=== PATIENT | male | born 1995 ===

== ENCOUNTER 2019-04-25 18:57 | Emergency (ER) | payer MEDICAID ==
[~2019-04-25] VITALS: Ht 175.3 cm; Wt 68.2 kg
[2019-04-25] MEDS ORDERED: SERT50TA12 PO (19:24)
[2019-04-25] MEDS ORDERED: ACETAMINOPHEN 500 MG TABLET PO ONE (19:45)
[2019-04-25 20:35] LABS: INFLUENZA TYPE A NEGATIVE FOR TYPE A (NEGATIVE); INFLUENZA TYPE B NEGATIVE FOR TYPE B (NEGATIVE)
[2019-04-25 21:19] VITALS: BP 122/73
[2019-04-25] MEDS ORDERED: AZITHROMYCIN 250 MG TABLET PO ONE (23:00)
== END 2019-04-25 23:11 | disposition home or self-care (01) ==
LOC: EMS 19:01
DX: J18.8 Other pneumonia, unspecified organism (principal); F41.9 Anxiety disorder, unspecified; F32.9 Major depressive disorder, single episode, unspecified; F17.210 Nicotine dependence, cigarettes, uncomplicated; F11.90 Opioid use, unspecified, uncomplicated; F15.90 Other stimulant use, unspecified, uncomplicated; Z79.899 Other long term (current) drug therapy
CPT/HCPCS: 87804